=== PATIENT | male | born 1990 | race Two or more races ===

== ENCOUNTER 2025-03-11 02:36 | Emergency (ER) | payer MEDICAID, SELFPAY ==
[2025-03-11 02:44] VITALS: PULSE 130; RESP 28
[2025-03-11] MEDS: MIDAZOLAM INJ 1 MG/ML VIAL 2 ML 5 MG IVP (03:43)
[2025-03-11] MEDS: SODIUM CHLORIDE 0.9% 1000 ML 1,000 ML 999 ML IV ×2 (03:43→07:03)
[2025-03-11 03:45] VITALS: BP 131/74; PULSE 98; RESP 28; TEMP 37; O2SAT 99
[2025-03-11 03:57] LABS: Basophils # (Auto) 0.1 Thou/mm3 (0.0-0.2); Basophils % (Auto) 1 % (0-2.5); Eosinophils # (Auto) 0.1 Thou/mm3 (0.0-0.5); Eosinophils % (Auto) 1 % (0-10); Hematocrit 41.9 % (41.0-53.0); Hemoglobin 14.6 g/dL (13.5-16.0); Immature Granulocytes Auto 0.03 Thou/mm3 (0.00-0.00); Lymphocytes # (Auto) 1.9 Thou/mm3 (1.0-4.8); Lymphocytes % (Auto) 14 % (10-50); Mean Corpuscular HGB Conc 34.8 g/dl (31.0-37.0); Mean Corpuscular Hemoglobin 28.3 pg (25.0-35.0); Mean Corpuscular Volume 81 fL (80-100); Monocytes # (Auto) 1.0 Thou/mm3 (0.0-0.8); Monocytes % (Auto) 8 % (0-12); Neutrophils # (Auto) 10.3 Thou/mm3 (1.8-7.7); Neutrophils % (Auto) 76 % (37-80); Nucleated Red Blood Cell # 0.00 Thou/mm3 (0.00-0.00); Nucleated Red Blood Cell % 0 /100 WBC (0); Platelet Count 286 Thou/mm3 (140-440); RDW Standard Deviation 35.9 fL (35.1-43.9); Red Blood Count 5.15 Miln/mm3 (4.50-5.90); White Blood Count 13.5 Thou/mm3 (3.8-10.6)
[2025-03-11 04:22] LABS: Alanine Aminotransferase 27 U/L (10-49); Albumin, Serum 4.2 gm/dL (3.5-5.0); Albumin/Globulin Ratio 1.9 (1.2-2.2); Alkaline Phosphatase 56 U/L (46-116); Anion Gap 12 (7-16); Aspartate Amino Transferase 41 U/L (0-34); BUN/Creatinine Ratio 17 Ratio (12-20); Bilirubin,Total 1.5 mg/dL (0.3-1.2); Blood Urea Nitrogen 12 mg/dL (9-23); Calcium 8.2 mg/dL (8.3-10.6); Calcium (Corrected) 8.2 mg/dL (8.5-10.1); Carbon Dioxide 23.0 mMol/L (20.0-31.0); Chloride 108 mMol/L (98-107); Creatinine (Component) 0.7 mg/dL (0.6-1.3); Globulin 2.2 gm/dL (2.3-3.5); Glucose 104 mg/dL (74-106); Osmolality,Calculated 284 (275-295); Potassium 3.1 mMol/L (3.4-5.1); Sodium 143 mMol/L (136-145); Total Protein 6.4 gm/dL (5.7-8.2); eGFR > 60 See Note
--- NOTE | 2025-03-11 04:23 | XR_ITS ---
Examination: CT brain head without contrast. 2-D sagittal coronal reconstructions Date and time of exam: March 11, 2025, 0436 hours INDICATIONS: Altered mental status today CTDI: vol (mGy): 49.70 DLP: (mGycm): 1001 Technique: Multiple CT axial sections of the brain have been obtained, 5 mm slice thickness. Contrast has not been administered. 2-D sagittal, coronal reconstructions have been obtained Low dose protocols were performed. One or more of the following dose reduction techniques were used; automated exposure control, adjustment of the mA and/or KV according to patient size, use of iterative reconstruction technique. Findings: No significant ventricular enlargement. Intra-axial or extra-axial hemorrhage density is not seen. No mass effect or midline shift Basal cisterns are not remarkable. Fourth ventricle is midline. Cranial vault intact. Prominent chronic ethmoid sinusitis Impression: Negative for acute hemorrhage, mass effect or midline shift Advise clinical correlation and follow-up accordingly
[2025-03-11 04:25] LABS: Collection Type, Urine Clean Catch; Squamous Epithelial Cell,Urine 0 /hpf (0-5)
--- NOTE | 2025-03-11 04:51 | PRELIM_ITS ---
CT scan of the head without intravenous contrast (axial sections with sagittal and coronal reformats). March 11, 2025 0436 hours Clinical History: r/o bleed Comparison: None Findings: There is no intracranial hemorrhage, extra-axial collection, mass, mass-effect or midline shift. There is good jaime-white differentiation. There is no CT evidence of acute large vascular territorial infarct. Ventricles are not enlarged or effaced. Small retrocerebellar arachnoid cyst suggested. There is mild paranasal sinus mucosal thickening. The tympanomastoid cavities are clear. The bony calvarium is intact. Impression: No intracranial hemorrhage, mass-effect or midline shift. No CT evidence of acute large vascular territorial infarct. Report Electronically Signed By: Arash Barnard 03/11/2025 4:50:43 AM [EST]
[2025-03-11 04:58] LABS: Bilirubin,Urine Negative (Negative); Blood,Urine Negative (Negative); Clarity,Urine Clear (Clear/Hazy); Color,Urine Yellow (Lt Yel-Yel); Culture Indicated,Urine Not Indicated; Glucose, Urine Negative (Negative); Hyaline Casts,Urine < 1 /hpf (0-1); Ketones,Urine 3+ (Negative); Leukocyte Esterase,Urine Negative (Negative); Nitrite,Urine Negative (Negative); PH,Urine 6.0 (5.0-7.0); Protein,Urine 1+ (Neg - Trace); RBC,Urine 9 /hpf (0-3); Renal Epithelial Cells,Urine 2 /hpf (0-5); Specific Gravity,Urine 1.036 (1.001-1.035); Urobilinogen,Urine 2.0 mg/dL (0.0-1.0); WBC,Urine 4 /hpf (0-5)
[2025-03-11 05:30] LABS: Amphetamine/Methamp Scrn,U Negative (Negative); Barbiturate Screen,Urine Negative (Negative); Benzodiazepines Screen,Urine Positive (Negative); Benzoylecgonine Screen, Ur Positive (Negative); Fentanyl Screen,Urine Negative (Negative); Opiate Screen,Urine Negative (Negative); THC Screen,Urine Negative (Negative)
--- NOTE | 2025-03-11 06:19 | EDNOTE_ITS ---
ED Overdose RME/HPI General Chief Complaint: Overdose Stated Complaint: SUBSTANCE ABUSE Time Seen by Provider: 03/11/25 06:09 Arrival date/time: 03/11/25 02:36 RME / HPI RME / HPI Narrative: DR. CARNES MAIN ED EVALUATION: 34-year-old male brought in for evaluation after taking too much cocaine at home. Was noted to be severely agitated on initial presentation requiring sedation. Unable to obtain other information from patient at this time. He does admit to cocaine use and admits to taking it at the house but otherwise not providing other information. Denies any pain or respiratory distress. Related Data Allergies Allergy/AdvReac Type Severity Reaction Status Date / Time No Known Allergies Allergy Verified 03/11/25 02:48 Review of Systems Review of Systems Systems Reviewed: All systems reviewed, normal except as documented Past Medical History Social History SMOKING STATUS: Never smoker SUBSTANCE USE: does not use ALCOHOL: Never ED Exam Narrative Physical exam: Constitutional: Sleepy, awakens easily to voice, is very fidgety and somewhat agitated on awakening and shifting [id number] frequently in the bed. Does not appear in distress though. HEENT: Normocephalic, atraumatic, extraocular movements intact. Neck: Supple CV: Regular rate and rhythm, no murmurs/rubs/gallops Lungs: Clear to auscultation BL, no respiratory distress. Abd: Soft, NT, ND, no HSM noted to palpation Extremities: No deformities, no edema noted Skin: Warm, dry, intact Course Quality Measures none Orders Category Date Time Status Insert IV NOW Care 03/11/25 03:[address] head/brain wo con Stat Exams 03/11/25 04:23 Completed XR chest 1V portable Stat Exams 03/11/25 08:13 Completed CBC Stat Lab 03/11/25 03:46 Completed CMP [Comprehensive Metabolic Panel] Stat Lab 03/11/25 03:46 Completed Drug Screen,Urine Stat Lab 03/11/25 04:21 Completed UA, C/S IF [Urinalysis, C/S if Indicated] Stat Lab 03/11/25 04:21 Completed Midazolam Inj [Versed Inj] Med 03/11/25 03:05 Discontinued 5 mg IVP X1 ONE Potassium Chloride [K-Dur] Med 03/11/25 08:13 Discontinued 40 meq PO X1 ONE Sodium Chloride 0.9% 1000 ml [Ns] 1,000 ml Med 03/11/25 03:06 Discontinued IV 999 mls/hr Sodium Chloride 0.9% 1000 ml [Ns] 1,000 ml Med 03/11/25 05:12 Discontinued IV 999 mls/hr Vital Signs Vital signs: Vital Signs Temperature 98.6 F 03/11/25 03:45 Pulse Rate 98 03/11/25 03:45 Respiratory Rate 28 H 03/11/25 03:45 Blood Pressure 131/74 H 03/11/25 03:45 Pulse Oximetry (%) 99 03/11/25 03:45 Oxygen Delivery Method Room Air 03/11/25 03:45 Overdose MDM Narrative MDM Narrative:: I, Zuleyma Sommer, am scribing for and in the presence of Dr. Carnes. 0923: Reassessment shows patient awake, alert, still fidgeting, and he admitted to using cocaine. I strongly advised him to stop using cocaine. Plan to discharge him and can go home when a family member picks him up. Patient was visualized prior to discharge, appeared improved compared with in itial presentation. Discharged home in stable condition. Patient data External records reviewed:: EMS form Clinical information provided by:: patient and EMS Social determinants that could affect healthcare access:: substance use Patient has the following chronic illnesses:: Denies any PMHx, surgeries, daily medications, or known allergies. How is presenting disease/condition affected by chronic disease/condition?: no chronic disease Evaluation data The following diagnostics were reviewed and interpreted by me:: lab results and radiology exam(s) Lab and/or radiology exams considered but not ordered:: none Interpretation Summary: Procedure(s): CT head/brain wo [facility] Accession Number(s): [id number] cc: Rufino Mead DO; Domenico Jiang MD; NO PRIMARY/FAMILY,PHYSICIAN~ Examination: CT brain head without contrast. 2-D sagittal coronal reconstructions Date and time of exam: March 11, 2025, 0436 hours INDICATIONS: Altered mental status today CTDI: vol (mGy): 49.70 DLP: (mGycm): 1001 Technique: Multiple CT axial sections of the brain have been obtained, 5 mm slice thickness. Contrast has not been administered. 2-D sagittal, coronal reconstructions have been obtained Low dose protocols were performed. One or more of the following dose reduction techniques were used; automated exposure control, adjustment of the mA and/or KV according to patient size, use of iterative reconstruction technique. Findings: No significant ventricular enlargement. Intra-axial or extra-axial hemorrhage density is not seen. No mass effect or midline shift Basal cisterns are not remarkable. Fourth ventricle is midline. Cranial vault intact. Prominent chronic ethmoid sinusitis Impression: Negative for acute hemorrhage, mass effect or midline shift Advise clinical correlation and follow-up accordingly Dictated By: Domenico Jiang MD Procedure(s): XR chest 1V portable Accession Number(s): [id number] cc: Domenico Jiang MD; Emily Carnes MD; NO PRIMARY/FAMILY,PHYSICIAN~ EXAMINATION: AP chest single view TECHNIQUE: AP portable upright chest single view Date and time: March 11, 2025, 0819 hours INDICATIONS: Chest pain today FINDINGS: Normal heart size. The lungs are clear. The osseous structures are intact. IMPRESSION: No active disease Dictated By: Domenico Jiang MD Medications / Prescriptions Medications or Prescriptions considered but not ordered:: none Medication administrations:: Medication Administration History Discontinued Medications Sodium Chloride (Ns) 1,000 mls @ 999 mls/hr IV .Q1H1M ONE Stop: 03/11/25 04:06 Last Infusion: 03/11/25 05:12 Dose: Infused Documented By: Admin: 03/11/25 03:43 Dose: 999 mls/hr Documented By: FRANK Sodium Chloride (Ns) 1,000 mls @ 999 mls/hr IV .Q1H1M ONE Stop: 03/11/25 06:12 Last Infusion: 03/11/25 08:05 Dose: Infused Documented By: Admin: 03/11/25 07:03 Dose: 999 mls/hr Documented By: FRANK Midazolam HCl (Midazolam Inj 1 Mg/Ml Vial 2 Ml) 5 mg IVP X1 ONE Stop: 03/11/25 03:06 Last Admin: 03/11/25 03:43 Dose: 5 mg Documented By: FRANK Potassium Chloride (Potassium Chloride 20 Meq Tabcr) 40 meq PO X1 ONE Stop: 03/11/25 08:14 Last Admin: 03/11/25 08:50 Dose: 40 meq Documented By: ED see above Consultations Consultation(s) initiated? (list below): No Diagnosis Overdose Differential Diagnosis: other (Acute cocaine intoxication, stimulant- induced psychosis, rhabdomyolysis, acute coronary syndrome secondary to cocaine, hyperthermia, metabolic derangement.) Most likely diagnosis given after review of the tests above:: Cocaine intoxication Drug overdose Admission Indicated Admission indicated?: not indicated Admission Request Was there a request for admission?: No Disposition Plan Disposition Plan: Discharge Discharge Attestation Discharge Attestation: The patient and all family members were given an opportunity to ask questions and understood the discharge instructions. Discharge instructions specifically effects, indications for sooner follow up or return to the emergency department, and the expected course of current diagnosis. Patient condition: Stable Discharge Plan Plan Patient Disposition: HOME (Self Care) Patient condition on transfer: Stable Prescriptions/Referrals Referrals: No Primary/Family,Physician [Primary Care Provider] - In 1 week Problem List Clinical Impression: Cocaine intoxication, Drug overdose Patient/Caregiver Discharge Instructions Diet Instructions: Avoid any further cocaine use - this can damage your mind and body. Best to avoid. 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 and late evening sun for Vitamin D health benefits) [place] (Avoid alcohol, illicit drugs, caffeinated beverages, smoking, etc) Air (Deep breathing exercises in the early mornings in fresh air) Rest (Adequate rest at night, going to bed a few hours before midnight and avoiding all screens/television/loud music in the time right before going to bed, also avoiding heavy meals just prior to going to bed) Trust in God (Spend time daily in Bible study and prayer - health benefits in contemplation of God's true character) Additional resources that can benefit: www.[employer], look under resources and seminars. Another good website is www.[facility].org Print Language: Lithuanian Stand Alone Forms: [facility]i Award Info., Patient Portal Info Letter
[2025-03-11 07:35] VITALS: BP 129/83; PULSE 93; RESP 20; TEMP 36.6; O2SAT 100
--- NOTE | 2025-03-11 07:35 | PC.NURSE ---
Pt. here from home to room 7, pt. 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 states he waited a couple days and then did coke, pt. states the coke was laced with meth, Pt. states he thought it was a good idea to do it, instead of throwing it away. Pt. states he is having a bad trip. Pt. eyes are red, no s/s of distress noted at this time. Offered a blanket, pt. declined.
--- NOTE | 2025-03-11 08:13 | XR_ITS ---
EXAMINATION: AP chest single view TECHNIQUE: AP portable upright chest single view Date and time: March 11, 2025, 0819 hours INDICATIONS: Chest pain today FINDINGS: Normal heart size. The lungs are clear. The osseous structures are intact. IMPRESSION: No active disease
[2025-03-11 10:18] VITALS: BP 120/70; PULSE 65; RESP 16; TEMP 36.5; O2SAT 95
--- NOTE | 2025-03-11 10:22 | PC.NURSE ---
called Edwige pt.'s Mother [phone], Edwige will come and pick pt. up from ER.
--- NOTE | 2025-03-11 11:18 | PC.NURSE ---
Dr. Davenport bedside checking pt.'s right hand, pt. right hand has edema and has been swollen since yesterday per pt., pt. denies any pain to right hand. Dr. Davenport instruct pt. to return if swelling increases or pt. has pain. Pt. verbalizes understanding.
[2025-03-11 11:23] VITALS: BP 115/75; PULSE 75; RESP 18; TEMP 36.6; O2SAT 97
== END 2025-03-11 11:23 | disposition home or self-care (01) ==
PROVIDERS: Emergency Medicine; Emergency Provider Family Medicine
DX: T50.901A Poisoning by unspecified drugs, medicaments and biological substances, accidental (unintentional), initial encounter (principal); F14.129 Cocaine abuse with intoxication, unspecified
CPT/HCPCS: 36415; 70450; 71045; 80053; 80307; 81001; 85025; 96127; 96361; 96374; 99283; J2250; J7030; A9270